=== PATIENT | female | born 1970 | race Caucasian/White ===

== ENCOUNTER → 2017-10-29 | Outpatient (CLI) | payer OTHER | LOC: M WHC 08:05 | DX: Z12.31 Encounter for screening mammogram for malignant neoplasm of breast (principal) ==

== ENCOUNTER → 2019-01-20 | Outpatient (REF) | payer OTHER ==
[2019-01-25 12:05] LABS: HPV HYBRID CAPTURE II Negative (Negative)
== END ==
LOC: M SFHCWAGY 09:34
PROVIDERS: ATTEND Nurse Practitioner Family
DX: Z12.4 Encounter for screening for malignant neoplasm of cervix (principal)

== ENCOUNTER → 2019-03-17 | Outpatient (REF) | payer OTHER | LOC: M LAB REF 13:49 | PROVIDERS: ATTEND Physician Assistant | DX: R05 Cough (principal) ==

== ENCOUNTER 2019-04-19 11:10 | Emergency (ER) | payer OTHER ==
[~2019-04-19] VITALS: Ht 162.6 cm; Wt 100.0 kg
[2019-04-19] MEDS ORDERED: CITA20TA6 PO (11:36)
[2019-04-19] MEDS ORDERED: OMEP-218 PO (11:36)
[2019-04-19] MEDS ORDERED: BUPR150T3 PO (11:36)
[2019-04-19] MEDS ORDERED: MECLIZINE 25 MG TABLET PO ONE (11:45)
[2019-04-19] MEDS ORDERED: ONDANSETRON 4 MG ORAL DISINTEGRATING TAB (Q0162 PER 1MG) PO ONE (11:45)
--- NOTE | 2019-04-19 11:57 | REP ---
CT of the brain without IV contrast: There are no comparisons. There is no hemorrhage, mass effect, edema or midline shift. The cortical stripe is unremarkable. The visualized paranasal sinuses demonstrate mild mucosal thickening in the ethmoid air cells, compatible with sinusitis, chronic versus acute. The frontal sinuses appear undeveloped. The maxillary sinuses are not included. Impression: There is no hemorrhage, acute infarct or mass. Ethmoid sinusitis, chronic versus acute versus combination. Electronically Signed by Toby De La Cruz MD 04/19/2019 11:49 A
[2019-04-19] MEDS ORDERED: PROMETHAZINE INJ 25 MG/ML VIAL (J2550) IM ONE (12:30)
--- NOTE | 2019-04-19 14:32 | REP ---
MR angiography the brain without contrast: History: Rule out cerebellar CVA. Technique: 3-D [id number] MR angiography of the brain is acquired in the usual fashion and maximal intensity projection images were generated in rotational format about the vertical and horizontal axes. In addition, source axial T1-weighted images are viewed in cine mode. MR angiographic findings: The distal vertebral arteries are patent and co-dominant. Basilar artery is a little tortuous but widely patent. The posterior cerebral and superior cerebellar vessels are normal and symmetric. The distal internal carotid arteries are unremarkable. Anterior and middle cerebral arteries appear intact. There is no visible grant aneurysm or arteriovenous malformation. Impression: Unremarkable MR angiography the brain. Electronically Signed by Real Farfan MD 04/19/2019 02:24 P
--- NOTE | 2019-04-19 14:41 | REP ---
MRI BRAIN WITHOUT CONTRAST: HISTORY: Rule out cerebellar CVA. Nausea and dizziness when turning head to the side. TECHNIQUE: Axial and sagittal imaging planes are utilized for T1- and T2-weighted scans. Sequences include spin-echo, fast spin echo, FLAIR, and diffusion weighted sequences. MRI FINDINGS: Craniocervical junction upper cervical cord are normal in appearance. No bony calvarial lesion is seen. There is moderate mucosal thickening affecting the left maxillary and mild mucosal thickening affecting the right maxillary and bilateral ethmoid sinuses. No intraorbital lesion is seen. Diffusion weighted scans show no evidence to suggest acute ischemia above or below the tentorium. There is no evidence of intracranial hemorrhage. No vascular abnormality is noted. Canas-white differentiation pattern is normal above and below the tentorium. No extra-axial fluid collection, infarct, or midline shift is seen. IMPRESSION: Paranasal sinus disease affecting the maxillary and ethmoid sinuses bilaterally. Otherwise normal MRI study of the brain. No evidence of acute infarction or other acute intracranial abnormality. Electronically Signed by Real Farfan MD 04/19/2019 04:09 P
[2019-04-19 14:45] VITALS: BP 139/78
[2019-04-19] MEDS ORDERED: MECL-68 PO (15:08)
[2019-04-19] MEDS ORDERED: ONDA4TAB6 PO (15:08)
--- NOTE | 2019-04-20 13:55 | ED PDOC ---
Post-Departure Follow-Up dr contreras faxed formal report of ct head for fu Letty Shah MD Apr 20, 2019 13:55
== END 2019-04-19 15:27 | disposition home or self-care (01) ==
LOC: M ED 11:10
DX: H83.09 Labyrinthitis, unspecified ear (principal); Z79.899 Other long term (current) drug therapy
CPT/HCPCS: 70450; 70544; 70551; 96372; 99284; Q0162

== ENCOUNTER 2019-07-21 13:05 | Emergency (ER) | payer OTHER ==
[~2019-07-21] VITALS: Ht 162.6 cm; Wt 90.9 kg
[~2019-07-21 13:05] MED LIST: BUPR150T3 PO; CITA20TA6 PO; MECL-68 PO; OMEP-218 PO; ONDA4TAB6 PO
[2019-07-21 14:00] LABS: BASO % 0.4 % (0.0-1.0); EOS # 0.2 10^3/uL (0.0-0.5); EOS % 2.5 % (0.0-3.0); HEMATOCRIT 37.6 % (36.0-47.0); HEMOGLOBIN 11.4 g/dl (12.0-15.5); LYMPH % 29.9 % (24.0-44.0); MEAN CORPUSCULAR HEMOGLOBIN 22.6 pg (27.0-33.0); MEAN CORPUSCULAR HGB CONC 30.3 g/dl (32.0-36.5); MEAN CORPUSCULAR VOLUME 74.6 fl (80.0-96.0); MONO # 0.5 10^3/uL (0.0-0.8); MONO % 7.9 % (0.0-5.0); NEUTROPHILS # 3.9 10^3/uL (1.5-8.5); NEUTROPHILS % 58.9 % (36.0-66.0); PLATELET COUNT, AUTOMATED 335 10^3/uL (150-450); RED BLOOD COUNT 5.04 10^6/uL (4.00-5.40); WHITE BLOOD COUNT 6.7 10^3/uL (4.0-10.0)
[2019-07-21 14:12] LABS: INR 1.05; PROTHROMBIN TIME 13.4 SECONDS (11.8-14.0)
[2019-07-21 14:42] LABS: ALBUMIN 3.6 GM/DL (3.2-5.2); ALT/SGPT 25 U/L (12-78); BILIRUBIN,DIRECT < 0.1 MG/DL (0.0-0.2); BILIRUBIN,TOTAL 0.2 MG/DL (0.2-1.0); BLOOD UREA NITROGEN 8 MG/DL (7-18); CARBON DIOXIDE LEVEL 27 MEQ/L (21-32); CHLORIDE LEVEL 106 MEQ/L (98-107); CK-MB VALUE MASS < 1.0 NG/ML (<3.6); CPK CREATINE PHOSPHOKINASE 75 U/L (26-192); GLOMERULAR FILTRATION RATE > 60.0 (>51); GLUCOSE, FASTING 84 MG/DL (70-100); LIPASE 86 U/L (73-393); MB/CK RELATIVE INDEX 1.33 (< OR =4); POTASSIUM SERUM 3.9 MEQ/L (3.5-5.1); SODIUM LEVEL 140 MEQ/L (136-145); TOTAL PROTEIN 7.4 GM/DL (6.4-8.2); TROPONIN I < 0.02 NG/ML (< 0.10)
--- NOTE | 2019-07-21 14:43 | REP ---
CHEST, SINGLE VIEW: There is no evidence of acute infiltrate. No pleural effusion is seen. The heart is normal in size. The mediastinal silhouette is unremarkable. The visualized osseous structures are intact. IMPRESSION: No acute pulmonary disease. Electronically Signed by Toby Canas MD 07/21/2019 05:41 P
[2019-07-21 15:53] VITALS: BP 130/63
--- NOTE | 2019-07-21 21:41 | ECGEPIP ---
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
== END 2019-07-21 15:54 | disposition home or self-care (01) ==
LOC: M ED 13:05
DX: R00.2 Palpitations (principal); R42 Dizziness and giddiness; K21.9 Gastro-esophageal reflux disease without esophagitis; Z90.49 Acquired absence of other specified parts of digestive tract; Z79.899 Other long term (current) drug therapy

== ENCOUNTER → 2020-03-12 | Outpatient (CLI) | payer OTHER ==
[~2020-03-12] MED LIST changes: -MECL-68 PO; +MECL1TAB31 PO
--- NOTE | 2020-03-12 16:01 | REPMRS ---
Patient History The patient states she had a clinical breast exam in March 2020.Family history of breast cancer at age 50 or over in mother, endometrial cancer in maternal aunt, colorectal cancer in paternal grandmother. No Hormone Replacement Therapy Digital Woman Screen Mammo: March 12, 2020 - Exam #: [id number] Bilateral CC and MLO view(s) were taken. Technologist: Eliza Beckham, Technologist Prior study comparison: January 20, 2019, bilateral digital woman screen mammo performed at [facility]. October 29, 2017, digital woman screen mammo performed at [facility]. October 23, 2016, digital woman screen mammo performed at [facility]. FINDINGS: There are scattered fibroglandular densities. The Volpara volumetric breast density category is:B. There has been no change in the appearance of the mammogram from the prior studies. There is a mild amount of scattered fibroglandular density which is fairly symmetric. There is no interval development of dominant mass, architectural distortion, or grouped microcalcification suggestive of malignancy. 3-D tomosynthesis shows no additional findings. Assessment: BI-RADS/ACR category 1 mammogram. Negative Mammogram. Recommendation Routine screening mammogram of both breasts in 1 year (for women over age 40). This patient's Lifetime Breast Cancer Risk is estimated at 16.3 %. This mammogram was interpreted with the aid of an FDA-approved computer-aided dectection system. Electronically Signed By: Nitesh Farfan MD 03/12/20 1600
== END ==
LOC: M WHC 14:17
PROVIDERS: ATTEND Nurse Practitioner Family
DX: Z12.31 Encounter for screening mammogram for malignant neoplasm of breast (principal)

== ENCOUNTER → 2020-08-09 | Outpatient (CLI) | payer OTHER | LOC: M LABSMTC 10:56 | PROVIDERS: ATTEND Pediatrics | DX: Z20.828 Contact with and (suspected) exposure to other viral communicable diseases (principal) | CPT/HCPCS: C9803; U0003 ==

== ENCOUNTER → 2020-08-19 | Outpatient (CLI) | payer OTHER | LOC: M LABSMTC 10:21 | PROVIDERS: ATTEND Pediatrics | DX: Z20.828 Contact with and (suspected) exposure to other viral communicable diseases (principal) ==

== ENCOUNTER → 2020-10-06 | Outpatient (CLI) | payer SELFPAY | LOC: M LABSMTC 11:33 | PROVIDERS: ATTEND Pediatrics | DX: Z20.828 Contact with and (suspected) exposure to other viral communicable diseases (principal) ==

== ENCOUNTER → 2021-03-14 | Outpatient (CLI) | payer OTHER ==
[~2021-03-14] MED LIST changes: +BUPR150T12 PO; -BUPR150T3 PO
== END ==
LOC: M WHC 13:01
PROVIDERS: ATTEND Advanced Practice Midwife
DX: Z53.9 Procedure and treatment not carried out, unspecified reason (principal); Z12.31 Encounter for screening mammogram for malignant neoplasm of breast

== ENCOUNTER → 2021-04-11 | Outpatient (CLI) | payer OTHER ==
--- NOTE | 2021-04-11 11:15 | REP ---
INDICATION: JAKE DIAG MAMMO/R BREAST CYST/N60.01. COMPARISON: Multiple TECHNIQUE: Digital mammography was obtained bilaterally in the CC and MLO projections and using both 2D and 3D modalities. Today's exam has been compared to the prior exams. By history, patient presents with complaints of a "pea-sized" lump in the right breast lower inner quadrant. In addition to the standard views diagnostic digital magnified spot compression views of the right breast over the clinical region of interest indicated by the technologist placing a triangular-shaped marker on the skin were obtained along with focused right breast ultrasonography over the clinical region of interest. FINDINGS: The breasts are unchanged in size and shape. There are no masses. There is no internal architectural distortion. There are no suspicious ifrah calcific clusters. There is no skin thickening or nipple retraction. Diagnostic digital magnified spot-compression views right breast region of interest show no abnormalities. Focused right breast ultrasonography over the clinical region of interest shows no cystic or solid masses. The Volpara volumetric breast density pattern is b. IMPRESSION: BIRADS/ACR category 2 negative mammogram. And negative right breast focused ultrasonography. There is no mammographic evidence or ultrasonographic evidence of malignant alteration of either breast. Routine bilateral screening mammography is recommended in 1 year. A negative mammogram and a negative breast ultrasound examination should never curtail biopsy of a clinically palpable mass or clinically suspicious area the breast. This patient's Tyrer-Cuzick lifetime breast cancer risk assessment score is 15.7 %. This mammogram was interpreted with the aid of an FDA-approved computer-aided detection system. The patient states she had a clinical breast exam in March of 2021 . The patient letter being requested is M2. RECOMMENDATION: As above <Electronically signed by Juanjo Forbes > 04/11/21 1111
== END ==
LOC: M WHC 08:49
PROVIDERS: ATTEND Advanced Practice Midwife
DX: N60.01 Solitary cyst of right breast (principal)

== ENCOUNTER → 2022-01-26 | Outpatient (REF) | payer BC ==
[~2022-01-26] MED LIST changes: +OMEP-173 PO; -OMEP-218 PO
== END ==
LOC: M LAB REF 09:23
PROVIDERS: ATTEND Nurse Practitioner
DX: K21.9 Gastro-esophageal reflux disease without esophagitis (principal); K64.1 Second degree hemorrhoids; K59.00 Constipation, unspecified; A04.8 Other specified bacterial intestinal infections

== ENCOUNTER → 2022-02-17 | Outpatient (REF) ==
[2022-02-17 15:42] LABS: RSV AMPLIFICATION NEGATIVE (NEGATIVE)
== END ==
LOC: M EMP 13:36
PROVIDERS: ATTEND Family Medicine
DX: Z20.822 Contact with and (suspected) exposure to COVID-19 (principal)

== ENCOUNTER → 2022-04-17 | Outpatient (CLI) | payer BC | LOC: M LABSMTC 09:17 | PROVIDERS: ATTEND Nurse Practitioner | DX: Z01.812 Encounter for preprocedural laboratory examination (principal); Z20.822 Contact with and (suspected) exposure to COVID-19 ==

== ENCOUNTER → 2022-10-16 | Outpatient (CLI) | payer BC ==
[~2022-10-16] MED LIST changes: +BUPR300T92 PO; +COLA100C5 PO; +LANS30CA93 PO; +METO1TAB7 PO; +SUCR1ORA PO
== END ==
LOC: M LABSMTC 09:55
PROVIDERS: ATTEND Anesthesiology
DX: Z01.812 Encounter for preprocedural laboratory examination (principal); Z11.52 Encounter for screening for COVID-19

== ENCOUNTER 2022-10-21 10:03 | Observation (INO) | payer BC ==
[~2022-10-21] VITALS: Ht 162.6 cm; Wt 74.0 kg
[~2022-10-21 10:03] MED LIST changes: +HEPARIN SOD (PORCINE) 5000UNITS/ML 1ML VIAL/SYRINGE SQ ONE; +ceFAZolin SOD 2 GM in IV 1 EA IV ONE
[2022-10-21] MEDS ORDERED: ONDANSETRON 4MG 2ML VIAL As Ordered ONE (10:17)
[2022-10-21] MEDS ORDERED: propofoL 200 MG/20 ML VIAL As Ordered ONE (10:17)
[2022-10-21] MEDS ORDERED: fentaNYL 250 MCG/5 ML INJECTION As Ordered ONE (10:17)
[2022-10-21] MEDS ORDERED: ROCURONIUM BROMIDE 50MG/5ML VIAL As Ordered ONE ×3 (10:17→17:36)
[2022-10-21] MEDS ORDERED: LIDOCAINE 2% 100MG/5ML SDV (FOR ANES.) As Ordered ONE (10:17)
[2022-10-21] MEDS ORDERED: MIDAZOLAM INJ 2MG/2ML VIAL As Ordered ONE (10:18)
[2022-10-21] MEDS ORDERED: diphenhydrAMINE 50MG/ML VIAL As Ordered ONE (10:18)
[2022-10-21] MEDS ORDERED: LR 1,000 ML IV SCH (10:55)
[2022-10-21] MEDS ORDERED: BUPIVACAINE HCL 0.25% 10ML VIAL As Ordered ONE (14:49)
[2022-10-21] MEDS ORDERED: GENTAMICIN SULF 80MG/2ML VIAL As Ordered ONE (14:49)
[2022-10-21] MEDS ORDERED: BUPIVACAINE LIPOSOME/PF 1.3% 20ML VIAL (13.3MG/ML)(EXPAREL) As Ordered ONE (14:49)
[2022-10-21] MEDS ORDERED: SEVOFLURANE INHAL SOLN 250 ML BTL As Ordered ONE (14:59)
[2022-10-21] MEDS ORDERED: ACETAMINOPHEN 1000MG 100ML IV BAG As Ordered ONE (15:53)
[2022-10-21] MEDS ORDERED: ePHEDrine SULFATE 25 MG/5 ML(5MG/ML) SYRINGE As Ordered ONE ×2 (15:57→16:24)
[2022-10-21] MEDS ORDERED: GLYCOPYRROLATE INJ 0.2 MG/ML 2 ML VIAL As Ordered ONE (15:58)
[2022-10-21] MEDS ORDERED: SUGAMMADEX SODIUM 500 MG/5 ML VIAL (BRIDION) As Ordered ONE (16:29)
[2022-10-21] MEDS ORDERED: HYDROmorphone HCL 2MG/ML 1ML VIAL As Ordered ONE (16:31)
[2022-10-21] MEDS ORDERED: ONDANSETRON 4MG 2ML VIAL IV PRN ×2 (19:30→19:50)
[2022-10-21] MEDS ORDERED: fentaNYL 100 MCG/2 ML INJECTION IV PRN (19:30)
[2022-10-21] MEDS ORDERED: oxyCODONE 5MG TAB PO PRN (19:30)
[2022-10-21] MEDS ORDERED: ACETAMINOPHEN TAB 650MG DOSE (2X325MG) PO PRN (19:50)
[2022-10-21] MEDS: LR 1,000 ML IV SCH (19:50)
[2022-10-21] MEDS ORDERED: MEPERIDINE 25 MG/ML 1ML VIAL As Ordered ONE (19:56)
[2022-10-21] MEDS: MEPERIDINE 25 MG/ML 1ML VIAL IV PRN ×2 (19:59→20:05)
[2022-10-21 21:54] VITALS: BP 140/78
[2022-10-21 22:58] VITALS: BP 103/55
[2022-10-22] MEDS: ceFAZolin SOD 1 GM in D5W MINI-BAG PLUS 50 ML IV SCH ×2 (00:07→08:58)
[2022-10-22 00:08] VITALS: BP 109/69
[2022-10-22] MEDS: PERCOCET 5MG/325MG TAB PO PRN ×3 (00:09→08:58)
[2022-10-22 01:07] VITALS: BP 108/68
[2022-10-22] MEDS ORDERED: MULTCHW12 PO (01:57)
[2022-10-22] MEDS ORDERED: HOME MED LIST COMPLETE! XX SCH (02:00)
[2022-10-22 02:09] VITALS: BP 106/64
[2022-10-22 05:35] VITALS: BP 105/63
[2022-10-22 06:20] LABS: HEMATOCRIT 34.2 % (36.0-47.0); HEMOGLOBIN 10.6 g/dl (12.0-15.5); MEAN CORPUSCULAR HEMOGLOBIN 25.2 pg (27.0-33.0); MEAN CORPUSCULAR VOLUME 81.2 fl (80.0-96.0); PLATELET COUNT, AUTOMATED 274 10^3/uL (150-450); RED BLOOD COUNT 4.21 10^6/uL (4.00-5.40); WHITE BLOOD COUNT 12.7 10^3/uL (4.0-10.0)
[2022-10-22 08:54] VITALS: BP 105/63
[2022-10-22] MEDS ORDERED: CitaloPRAM (CeleXA) 20 MG TAB PO SCH (09:00)
[2022-10-22] MEDS: LR 1,000 ML IV SCH (09:00)
[2022-10-22] MEDS ORDERED: METOPROLOL SUCC (TopROL XL) 50MG **XL** TAB PO SCH (09:00)
[2022-10-22] MEDS ORDERED: buPROPion **XL** TABLET 150MG (WELLBUTRIN XL) PO SCH (09:00)
[2022-10-22 10:00] VITALS: BP 98/47
[2022-10-22] MEDS ORDERED: PERCOCET PO (11:32)
== END 2022-10-22 14:00 | disposition home or self-care (01) ==
LOC: M SDC 10:03 → M MS5PR 10:04
PROVIDERS: ADMIT Plastic Surgery Surgery of the Hand; ATTEND Plastic Surgery Surgery of the Hand
DX: M54.07 Panniculitis affecting regions of neck and back, lumbosacral region (principal); K43.0 Incisional hernia with obstruction, without gangrene; F41.9 Anxiety disorder, unspecified; F32.A Depression, unspecified; K21.9 Gastro-esophageal reflux disease without esophagitis; Z87.891 Personal history of nicotine dependence; Z79.899 Other long term (current) drug therapy; G50.9 Disorder of trigeminal nerve, unspecified
CPT/HCPCS: 15830; 15847; 36415; 49561; 85027; 88300; 88302; 96365; 96366; C9290; J0131; J0690; J1100; J1170; J1200; J1580; J1644; J2175; J2250; J2405; J3010; S0020

== ENCOUNTER → 2022-11-19 | Outpatient (CLI) | payer BC ==
[~2022-11-19] MED LIST changes: -HEPARIN SOD (PORCINE) 5000UNITS/ML 1ML VIAL/SYRINGE SQ ONE; +MULTCHW12 PO; +PERCOCET PO; -ceFAZolin SOD 2 GM in IV 1 EA IV ONE
[2022-11-19 17:40] LABS: MAGNESIUM LEVEL 1.9 MG/DL (1.8-2.4)
[2022-11-19 17:44] LABS: TOTAL 25(OH) VITAMIN D 16.4 NG/ML (20.0-100.0)
== END ==
LOC: M LAB 16:15
PROVIDERS: ATTEND Internal Medicine Gastroenterology
DX: K44.9 Diaphragmatic hernia without obstruction or gangrene (principal); K21.9 Gastro-esophageal reflux disease without esophagitis; K59.00 Constipation, unspecified; K64.4 Residual hemorrhoidal skin tags; E55.9 Vitamin D deficiency, unspecified

== ENCOUNTER → 2023-05-14 | Outpatient (REF) | payer BC ==
[2023-05-14 14:10] LABS: PERCENT SATURATION 8.1 % (13.2-45.0)
== END ==
LOC: M LAB REF 12:16
PROVIDERS: ATTEND Internal Medicine
DX: D64.9 Anemia, unspecified (principal)

== ENCOUNTER → 2023-11-20 | Outpatient (REF) | payer BC ==
[~2023-11-20] MED LIST changes: +MECL-209 PO; -MECL1TAB31 PO
== END ==
LOC: M LAB REF 13:03
PROVIDERS: ATTEND Plastic Surgery Surgery of the Hand
DX: L90.5 Scar conditions and fibrosis of skin (principal); Z48.817 Encounter for surgical aftercare following surgery on the skin and subcutaneous tissue

== ENCOUNTER → 2023-12-18 | Outpatient (REF) | payer BC | LOC: M LAB REF 11:21 | PROVIDERS: ATTEND Plastic Surgery Surgery of the Hand | DX: Z48.817 Encounter for surgical aftercare following surgery on the skin and subcutaneous tissue (principal); L90.5 Scar conditions and fibrosis of skin ==

== ENCOUNTER → 2023-12-24 | Outpatient (REF) ==
[2023-12-24 12:51] LABS: RSV AMPLIFICATION NEGATIVE (NEGATIVE)
== END ==
LOC: M EMP 07:54
PROVIDERS: ATTEND Family Medicine
DX: Z11.52 Encounter for screening for COVID-19 (principal)

== ENCOUNTER → 2024-06-23 | Outpatient (REF) | payer BC ==
[~2024-06-23] MED LIST changes: +BUPR-597 PO; -BUPR300T92 PO; +ONDA-282 PO; -ONDA4TAB6 PO
[2024-06-23 18:09] LABS: PERCENT SATURATION 10.2 % (13.2-45.0)
[2024-06-23 18:12] LABS: FERRITIN 4.9 NG/ML (7.3-270.7)
== END ==
LOC: M LAB REF 16:31
PROVIDERS: ATTEND Internal Medicine
DX: D64.9 Anemia, unspecified (principal)

== ENCOUNTER 2024-07-28 07:13 | Outpatient (CLI) | payer BC ==
[~2024-07-28] VITALS: Ht 162.6 cm; Wt 72.2 kg
[~2024-07-28 07:13] MED LIST changes: +ALBUTEROL SULFATE 2.5MG/0.5ML INH NEB SOLN INH PRN; +EPINEPHrine INJ 1 MG/ML 1ML AMP IM PRN; +diphenhydrAMINE 50MG/ML VIAL IV PRN; +methylPREDNISolone 125MG 2ML VIAL IV PRN
[2024-07-28 07:30] VITALS: BP 114/65; O2SAT 98
[2024-07-28] MEDS ORDERED: IRON SUCROSE 25 MG in NS 23.75 ML IV ONE (07:30)
[2024-07-28] MEDS ORDERED: IRON SUCROSE 475 MG in NS 250 ML IV ONE (07:30)
[2024-07-28] MEDS ORDERED: NS 1,000 ML IV SCH (07:30)
[2024-07-28] MEDS ORDERED: IRON SUCROSE 500 MG in NS 250 ML OVER 4 HRS IV ONE (07:30)
[2024-07-28] MEDS: IRON SUCROSE 500 MG in NS 250 ML OVER 4 HRS IV ONE (08:35)
[2024-07-28 09:30] VITALS: BP 123/58; O2SAT 100
[2024-07-28 10:30] VITALS: BP 125/58; O2SAT 98
[2024-07-28 11:30] VITALS: BP 126/60; O2SAT 100
[2024-07-28 13:10] VITALS: BP 135/81; O2SAT 97
== END 2024-07-28 13:10 | disposition home or self-care (01) ==
LOC: M INFU 07:13
PROVIDERS: ATTEND Internal Medicine
DX: E61.1 Iron deficiency (principal)
CPT/HCPCS: 96365; 96366; J1756

== ENCOUNTER → 2024-08-10 | Outpatient (REF) ==
[~2024-08-10] MED LIST changes: -ALBUTEROL SULFATE 2.5MG/0.5ML INH NEB SOLN INH PRN; -EPINEPHrine INJ 1 MG/ML 1ML AMP IM PRN; -diphenhydrAMINE 50MG/ML VIAL IV PRN; -methylPREDNISolone 125MG 2ML VIAL IV PRN
== END ==
LOC: M EMP 10:18
PROVIDERS: ATTEND Family Medicine
DX: Z11.52 Encounter for screening for COVID-19 (principal)

== ENCOUNTER → 2024-10-16 | Outpatient (REF) | payer BC | LOC: M LAB REF 18:39 | PROVIDERS: ATTEND Physician Assistant Medical | DX: B34.9 Viral infection, unspecified (principal) ==

== ENCOUNTER 2024-10-31 01:39 | Emergency (ER) | payer BC ==
[~2024-10-31] VITALS: Ht 162.6 cm; Wt 70.9 kg
[2024-10-31 02:49] LABS: BASO # 0.1 10^3/uL (0.0-0.2); BASO % 0.5 % (0.0-1.0); EOS # 0.1 10^3/uL (0.0-0.5); EOS % 1.1 % (0.0-3.0); HEMATOCRIT 44.2 % (36.0-47.0); HEMOGLOBIN 14.4 g/dl (12.0-15.5); LYMPH # 2.5 10^3/uL (1.5-5.0); LYMPH % 26.9 % (24.0-44.0); MEAN CORPUSCULAR HEMOGLOBIN 25.8 pg (27.0-33.0); MEAN CORPUSCULAR HGB CONC 32.6 g/dl (32.0-36.5); MEAN CORPUSCULAR VOLUME 79.2 fl (80.0-96.0); MONO # 0.8 10^3/uL (0.0-0.8); MONO % 8.2 % (2.0-8.0); NEUTROPHILS # 5.9 10^3/uL (1.5-8.5); NEUTROPHILS % 63.1 % (36.0-66.0); PLATELET COUNT, AUTOMATED 324 10^3/uL (150-450); RED BLOOD COUNT 5.58 10^6/uL (4.00-5.40); WHITE BLOOD COUNT 9.4 10^3/uL (4.0-10.0)
[2024-10-31 03:15] VITALS: TEMP 97
[2024-10-31 03:16] LABS: BLOOD UREA NITROGEN 13 MG/DL (9-23); CALCIUM LEVEL 11.7 MG/DL (8.5-10.1); CARBON DIOXIDE LEVEL 34 MMOL/L (20-31); CHLORIDE LEVEL 100 MMOL/L (98-107); CK-MB VALUE MASS < 1.0 NG/ML (<3.6); CREATININE FOR GFR 0.73 MG/DL (0.55-1.30); GLOMERULAR FILTRATION RATE > 60.0 (>51); GLUCOSE, FASTING 106 MG/DL (60-100); SODIUM LEVEL 141 MMOL/L (136-145)
[2024-10-31 03:17] LABS: CPK CREATINE PHOSPHOKINASE 34 U/L (34-145); MB/CK RELATIVE INDEX 2.94 (< OR =4)
[2024-10-31] MEDS: ONDANSETRON 4MG 2ML VIAL IV ONE (03:29)
[2024-10-31] MEDS: MAALOX 30 ML SUSP *UDC PO ONE (03:29)
[2024-10-31] MEDS ORDERED: ISOVUE-370 76% 100ML VIAL As Ordered ONE (03:40)
[2024-10-31 04:12] LABS: CPK CREATINE PHOSPHOKINASE 35 U/L (34-145)
[2024-10-31 04:19] LABS: CK-MB VALUE MASS < 1.0 NG/ML (<3.6); MB/CK RELATIVE INDEX 2.85 (< OR =4)
[2024-10-31 04:21] LABS: LIPASE 37 U/L (12-53)
[2024-10-31 04:23] LABS: ALBUMIN 3.6 G/DL (3.2-5.2); ALKALINE PHOSPHATASE 86 U/L (35-104); ALT/SGPT 11 U/L (7.0-40); AST/SGOT 11 U/L (<34); BILIRUBIN,DIRECT 0.1 MG/DL (<0.4); BILIRUBIN,TOTAL 0.4 MG/DL (0.3-1.2); TOTAL PROTEIN 8.1 G/DL (5.7-8.2)
[2024-10-31] MEDS: SUCRALFATE 1 GM TAB PO ONE (06:23)
[2024-10-31] MEDS: PANTOPRAZOLE 40MG VIAL IV ONE (06:24)
[2024-10-31] MEDS: FAMOTIDINE IV BAG 20 MG in IV 1 EA IV ONE (06:29)
[2024-10-31 06:31] VITALS: BP 143/64
[2024-10-31] MEDS ORDERED: PROT1TAB2 PO (06:38)
[2024-10-31] MEDS ORDERED: PEPC1TAB5 PO (06:38)
[2024-10-31] MEDS ORDERED: CARA1TAB6 PO (06:38)
[2024-10-31 06:45] VITALS: O2SAT 97
== END 2024-10-31 07:01 | disposition home or self-care (01) ==
LOC: M ED 01:39
DX: I73.9 Peripheral vascular disease, unspecified (principal); K21.9 Gastro-esophageal reflux disease without esophagitis; F41.9 Anxiety disorder, unspecified; F32.A Depression, unspecified; Z79.899 Other long term (current) drug therapy
CPT/HCPCS: 71045; 74177; 80048; 80076; 82550; 82553; 83690; 84484; 85025; 93005; 93041; 94760; 96365; 96375; 99285; J2405; J2470; Q9967; S0028

== ENCOUNTER 2024-11-02 14:17 | Emergency (ER) | payer BC ==
[~2024-11-02] VITALS: Ht 157.5 cm; Wt 70.5 kg
[~2024-11-02 14:17] MED LIST changes: +CARA1TAB6 PO; +PEPC1TAB5 PO; +PROT1TAB2 PO
[2024-11-02] MEDS ORDERED: IRON65TA2 PO (14:31)
[2024-11-02] MEDS: NS 500 ML IV ONE (15:05)
[2024-11-02 15:07] LABS: BASO % 0.5 % (0.0-1.0); EOS # 0.1 10^3/uL (0.0-0.5); EOS % 1.6 % (0.0-3.0); HEMATOCRIT 42.3 % (36.0-47.0); HEMOGLOBIN 13.9 g/dl (12.0-15.5); LYMPH # 2.1 10^3/uL (1.5-5.0); LYMPH % 33.2 % (24.0-44.0); MEAN CORPUSCULAR HEMOGLOBIN 26.3 pg (27.0-33.0); MEAN CORPUSCULAR HGB CONC 32.9 g/dl (32.0-36.5); MONO # 0.6 10^3/uL (0.0-0.8); MONO % 9.4 % (2.0-8.0); NEUTROPHILS # 3.4 10^3/uL (1.5-8.5); PLATELET COUNT, AUTOMATED 302 10^3/uL (150-450); RED BLOOD COUNT 5.29 10^6/uL (4.00-5.40); WHITE BLOOD COUNT 6.2 10^3/uL (4.0-10.0)
[2024-11-02] MEDS: METOCLOPRAMIDE INJ 10MG/2ML VIAL IV ONE (15:10)
[2024-11-02 15:30] LABS: LIPASE 36 U/L (12-53)
[2024-11-02 15:33] LABS: ALBUMIN 3.8 G/DL (3.2-5.2); ALKALINE PHOSPHATASE 81 U/L (35-104); ALT/SGPT 9 U/L (7.0-40); AST/SGOT 14 U/L (<34); BILIRUBIN,DIRECT 0.1 MG/DL (<0.4); BILIRUBIN,TOTAL 0.4 MG/DL (0.3-1.2); BLOOD UREA NITROGEN 21 MG/DL (9-23); CARBON DIOXIDE LEVEL 32 MMOL/L (20-31); CHLORIDE LEVEL 102 MMOL/L (98-107); CREATININE FOR GFR 0.67 MG/DL (0.55-1.30); GLOMERULAR FILTRATION RATE > 60.0 (>51); GLUCOSE, FASTING 97 MG/DL (60-100); MAGNESIUM LEVEL 1.8 MG/DL (1.8-2.4); POTASSIUM SERUM 3.7 MMOL/L (3.5-5.1); SODIUM LEVEL 141 MMOL/L (136-145)
[2024-11-02] MEDS ORDERED: REGL5TAB2 PO (16:37)
[2024-11-02 16:45] VITALS: BP 121/58; TEMP 97; O2SAT 100
== END 2024-11-02 16:54 | disposition home or self-care (01) ==
LOC: M ED 14:17
DX: K31.84 Gastroparesis (principal); I10 Essential (primary) hypertension; K21.9 Gastro-esophageal reflux disease without esophagitis; D50.9 Iron deficiency anemia, unspecified; F10.10 Alcohol abuse, uncomplicated; Z79.899 Other long term (current) drug therapy
CPT/HCPCS: 80048; 80076; 83605; 83690; 83735; 85025; 96361; 96374; 99284; J2765

== ENCOUNTER → 2024-11-24 | Outpatient (REF) | payer BC ==
[~2024-11-24] MED LIST changes: +IRON65TA2 PO; +REGL5TAB2 PO
[2024-11-24 15:11] LABS: PERCENT SATURATION 9.8 % (13.2-45.0)
[2024-11-24 15:14] LABS: FERRITIN 22.5 NG/ML (7.3-270.7)
== END ==
LOC: M LAB REF 13:51
PROVIDERS: ATTEND Internal Medicine
DX: E61.1 Iron deficiency (principal)

== ENCOUNTER → 2024-12-26 | Outpatient (CLI) | payer BC | LOC: M WUC 13:53 | PROVIDERS: ATTEND Nurse Practitioner Family | DX: M54.2 Cervicalgia (principal); M25.511 Pain in right shoulder; M47.812 Spondylosis without myelopathy or radiculopathy, cervical region ==

== ENCOUNTER → 2024-12-26 | Outpatient (CLI) | payer BC | LOC: M WUC 13:52 | PROVIDERS: ATTEND Nurse Practitioner Family | DX: Z53.9 Procedure and treatment not carried out, unspecified reason (principal) ==

== ENCOUNTER → 2025-05-25 | Outpatient (REF) | payer BC ==
[~2025-05-25] MED LIST changes: -BUPR-597 PO; +BUPR-766 PO
[2025-05-25 12:42] LABS: IRON (FE) 122.0 UG/DL (50-170); PERCENT SATURATION 38.2 % (13.2-45.0)
== END ==
LOC: M LAB REF 12:08
PROVIDERS: ATTEND Internal Medicine
DX: E61.1 Iron deficiency (principal); Z82.49 Family history of ischemic heart disease and other diseases of the circulatory system

== ENCOUNTER → 2025-06-26 | Outpatient (REF) | payer BC | LOC: M LAB REF 14:22 | PROVIDERS: ATTEND Internal Medicine | DX: E03.9 Hypothyroidism, unspecified (principal) ==

== ENCOUNTER → 2025-08-17 | Outpatient (CLI) | payer BC | LOC: M WHC 14:59 | PROVIDERS: ATTEND Nurse Practitioner Family | DX: Z12.31 Encounter for screening mammogram for malignant neoplasm of breast (principal); R92.313 Mammographic fatty tissue density, bilateral breasts ==

== ENCOUNTER → 2025-08-17 | Outpatient (REF) | payer BC ==
[2025-08-19 12:18] LABS: HPV APTIMA Not Detected (Not Detected)
== END ==
LOC: M SFHCWAGY 13:21
PROVIDERS: ATTEND Nurse Practitioner Family
DX: Z12.4 Encounter for screening for malignant neoplasm of cervix (principal)
CPT/HCPCS: 87624; G0123

== ENCOUNTER → 2025-08-22 | Outpatient (CLI) | payer BC | LOC: M LAB 13:48 | PROVIDERS: ATTEND Nurse Practitioner Family | DX: Z80.3 Family history of malignant neoplasm of breast (principal) ==

== ENCOUNTER → 2025-09-26 | Outpatient (CLI) | payer BC | LOC: M LAB 11:35 | PROVIDERS: ATTEND Internal Medicine | DX: E03.9 Hypothyroidism, unspecified (principal) ==

== ENCOUNTER → 2025-09-26 | Outpatient (CLI) | payer BC ==
[2025-09-26 12:38] LABS: TOTAL 25(OH) VITAMIN D 37.1 NG/ML (20.0-100.0); VITAMIN B12 LEVEL 308.0 PG/ML (211-911)
== END ==
LOC: M LAB 11:31
PROVIDERS: ATTEND Internal Medicine Gastroenterology
DX: K44.9 Diaphragmatic hernia without obstruction or gangrene (principal); K21.9 Gastro-esophageal reflux disease without esophagitis; E55.9 Vitamin D deficiency, unspecified; Z12.11 Encounter for screening for malignant neoplasm of colon; Z79.899 Other long term (current) drug therapy